=== PATIENT | female | born 1995 | race Caucasian/White ===

== ENCOUNTER 2021-05-10 16:04 | Inpatient (IN) | payer MEDICAID ==
[~2021-05-10] VITALS: Ht 177.8 cm; Wt 67.3 kg
[2021-05-10] VITALS (15 sets, daily range): BP systolic 106–150; BP diastolic 62–92; PULSE 65–96; TEMP 97.8
--- NOTE | 2021-05-10 16:42 | NUR ---
PT TO OB FROM HER HO[facility] PER OFFICE; SHE HAS BEEN TAKING HER BP AT HOME "ALL AFTERNOON" AND SHE HAD 1 ELEVATED 140/90 AND SHE CALLED OFFICE AND THEY TOLE HER TO COME TO HOSPITAL. SHE HAS A SLIGHT JEAN, HAS NOT TAKEN ANY TYLENOL. SHE REPORTS +fm, NO BLEEDING OR UCS TODAY, FOB WAS +COVID MAY 02 AND SHE NEVER WAS TESTED, DENIES SX.
[2021-05-10 17:07] LABS: COLLECTION METHOD CLEAN CATCH
[2021-05-10 17:09] LABS: BASO % 0.3 % (0.0-2.0); EOS # 0.1 K/mm3 (0.0-0.7); EOS % 0.9 % (0.0-4.0); GRAN # 5.4 K/mm3 (1.4-6.5); GRAN % 70.1 % (42.2-75.2); HEMOGLOBIN 10.8 g/dl (12.5-16.0); LYMPH # 1.5 K/mm3 (1.2-3.4); MEAN CELL VOLUME 94 fl (80.0-100.0); MEAN CORPUSCULAR HEMOGLOBIN 34 pg (27-31); MEAN CORPUSCULAR HGB CONC 36 g/dl (33.0-37.0); MEAN PLATELET VOLUME 12.3 fl (7.4-10.4); MONO # 0.7 K/mm3 (0.1-0.6); MONO % 9.2 % (1.7-9.3); PLATELET COUNT 129 K/mm3 (130-400); RED BLOOD COUNT 3.22 M/mm3 (4.10-5.30); REDCELL DISTRIBUTION WIDTH-CV 12.6 % (11.5-14.5)
[2021-05-10 17:10] LABS: HEMATOCRIT 30.3 % (37.0-47.0)
--- NOTE | 2021-05-10 17:18 | NUR ---
LABS DRAWN AND UA COLLECTED, TAKEN TO LAB, PT ASSISTED BACK TO BED
[2021-05-10 17:27] LABS: ALBUMIN 3.2 gm/dL (3.5-5.0); BILIRUBIN,TOTAL 0.2 mg/dL (0.2-1.2); CALCIUM 9.2 mg/dL (8.4-10.2); CREATININE, serum 0.75 mg/dL (0.57-1.11); PH 7 (5-8); POTASSIUM 3.9 mmol/L (3.5-4.5); SQUAMOUS EPITHELIAL None Seen /hpf (0-10); TOTAL PROTEIN 6.6 gm/dL (6.2-8.1); URINE APPEARANCE Clear (CLEAR/HAZY); URINE BACTERIA Rare /hpf (NONE SEEN); URINE BILIRUBIN Negative (NEGATIVE); URINE BLOOD Negative (NEGATIVE); URINE COLOR Yellow (YELLOW); URINE GLUCOSE Negative (NEGATIVE); URINE KETONE Negative (NEGATIVE); URINE LEUKOCYTE ESTERASE Negative (NEGATIVE); URINE NITRATE Negative (NEGATIVE); URINE PROTEIN(semi-quant) 1+ (NEGATIVE); URINE RBC None Seen /hpf (0-2); URINE UROBILINOGEN Negative (NEGATIVE); URINE WBC 0-2 /hpf (0-2)
--- NOTE | 2021-05-10 18:18 | NUR ---
DR RG HAS DECIDED TO KEEP PT AND IOL WITH CYTOTEC I DID GO IN AND DISCUSS POC WITH PT AND HER SO; FOB IS POST 10 DAYS COVID BUT PT NEVER GOT TESTED AND IS ASYMPTOMATIC, PT WOULD BE WITHIN 10 DAYS OF EXPOSURE
[2021-05-10] MEDS ORDERED: PRENATAL TABLET PO (20:28)
[2021-05-10] MEDS ORDERED: VITAMIN D31000 IU PO (20:29)
[2021-05-10] MEDS ORDERED: OMEGA-3 1000 MG1 CAP PO (20:29)
[2021-05-10] MEDS ORDERED: VALTREX1 GM PO (20:29)
[2021-05-11] VITALS (52 sets, daily range): BP systolic 107–150; BP diastolic 57–95; PULSE 63–129; TEMP 97.9–98.7
--- NOTE | 2021-05-11 04:00 | NUR ---
0400- THIS RN TO BEDSIDE TO DISCONNECT MONITORS SO PATIENT CAN GO TO THE BATHROOM AND STRETCH HER LEGS, WASH HER FACE, EAT SOMETHING LIGHT OR WHATEVER SHE WOULD LIKE TO DO TO GET READY FOR THE MORNING BEFORE WE START PITOCIN INDUCTION. PATIENT VERBALIZED UNDERSTANDING ON PLAN OF CARE GOING FORWARD WITH NO FURTHER QUESTIONS. CALL LIGHT WITHIN REACH.
--- NOTE | 2021-05-11 04:35 | NUR ---
0435- PATIENT FINISHED GETTING READY FOR THE MORNING AND EATING HER SNACK. THIS RN TO BEDSIDE TO PUT MONITORS BACK ON. 0440- EFM AND TOCO ON AND TRACING. PLAN OF CARE DISCUSSED. PATIENT VERBALIZED UNDERSTANDING. 0445- SVE /-2. 0450- PITOCIN STARTED PER INDUCTION PROTOCOL AT 2MU/HR. VITALS STABLE. PATIENT DENIES FURTHER NEEDS. CALL LIGHT WITHIN REACH.
--- NOTE | 2021-05-11 06:20 | NUR ---
This RN assumes care of patient. Patient right lateral and sleeping at this time. 0700: Patient more uncomfortable with contractions. Up on birthing ball, difficulty tracing FHR, this RN at bedside adjusting monitor. 0715: Patient standing and leaning on bed during contractions. 0800: Patient more uncomfortable with contractions and continues to stand and lean onto bed. FHR intermittently tracing maternal heart rate due to maternal position. 0820: Patient requesting epidural and Isabel ASSISTANT TO THE DIRECTOR notified. 0850: at bedside assessing patient and FHR strip. Physician attempts SVE and patient not tolerating well. Plan of care disussed. 0902: Patient sitting up for placement of epidural and FHR tracing maternal heart due to maternal position. 0916: Test dose done and patient tolerates well. 0920: Patient given safety precautions and discussing plan of care. Patient repsitioned.
--- NOTE | 2021-05-11 09:30 | NUR ---
0930 Jamal Solis CRNA at bedside dosing patient and patient wedged left.
--- NOTE | 2021-05-11 10:50 | NUR ---
1050: Marroquin catheter placed and patient tolerates well. SVE-10/100/0. 1103: Dr. Patrick called and Vaishali GARCIA takes message at this time. 1110: Pushing instructions discussed and marroquin catheter removed. Patient begins pushing with contractions. 1200: Patient continues to push with contractions. 1219: Dr. Patrick called and updated. see physician notification. 1220: Patient intermittently pushing. 1302: Dr. Patrick at bedside and patient set up for delivery. Patient straight catherized and 50cc obtained. Patient continues to push.
--- NOTE | 2021-05-11 13:10 | NUR ---
1310: Spontaneous vaginal delivery of viable female. Head followed by body. Body cord noted at this time. Terminal meconium. Infant bulb syringed and to patients abdomen and A. Nolan RN assumes care of infant. Cord clamped x2 and FOB cuts cord. Cord blood obtained. Gush of blood noted after delivery of infant. 1315: Spontaneous delivery of placenta and pitocin bolus started per protocol. Dr. Patrick orders for hemabate. Fundus boggy and bleeding moderate. 1322. Hemabate given. see EMAR. Fundal massage done/firm/bleeding WNL. Physician repairs laceration. Pericare done, patient repositioned, fundal massage done/firm/bleeding WNL. Plan of care discussed.
--- NOTE | 2021-05-11 19:19 | NUR ---
LAB CALLED AND STATED THAT WHEN THEY TYPE AND SCREENED MOM'S BLOOD HER D ANTIGEN WAS GRADED AT A 3+ WHICH IS REALLY GOOD. LAB HAS QUESTIONS ABOUT DOING FURTHER TESTING AND STILL TREATING PATIENT A- LIKE SHE HAS BEEN DURING . SPOKE WITH PROVIDER REGARDING THIS, SEE PHYSICIAN NOTIFICATION. WHEN CALLING LAB BACK THEY STATED PER PROTOCOL FOR THEM THEY WERE GOING TO DRAW LABS TOMORROW, BUT WILL HOLD OFF UNTIL SPEAKING WITH PROVIDER. HE ALSO STATED THEY WERE RE TYPING AND SCREENING THE PATIENT SINCE SHE HAS NO HISTORY HERE WITH US AND TO TEST THAT WEAK D ANTIGEN AGAIN TO MAKE SURE.
[2021-05-12 00:15] VITALS: BP 123/69; PULSE 81; TEMP 98.1
[2021-05-12 04:00] VITALS: BP 118/83; PULSE 73; TEMP 97.6
[2021-05-12 07:43] VITALS: BP 138/91; PULSE 91; TEMP 97.5
[2021-05-12] MEDS ORDERED: IBU800 M1 PO (08:35)
--- NOTE | 2021-05-12 09:06 | NUR ---
Initial visit attempt; Nurse with family. Fireworks Maker left a card offering congratulations and God's blessings for the of their daughter and information regarding the availability of spiritual care at our hospital.
== END 2021-05-12 16:40 | disposition home or self-care (01) | DRG 806 ==
LOC: LDRO 16:04 → LDR 16:26 → LDRO 18:09 → LDR 18:10 → OB 05-11 17:57
PROVIDERS: ADMIT Student in an Organized Health Care Education/Training Program
PROC: 10E0XZZ Delivery of Products of Conception, External Approach (ICD-10-PCS; principal; 2021-05-11)
PROC: 0KQM0ZZ Repair Perineum Muscle, Open Approach (ICD-10-PCS; 2021-05-11)
PROC: 3E0P7VZ Introduction of Hormone into Female Reproductive, Via Natural or Artificial Opening (ICD-10-PCS; 2021-05-11)
PROC: 3E033VJ Introduction of Other Hormone into Peripheral Vein, Percutaneous Approach (ICD-10-PCS; 2021-05-11)
DX: O14.04 Mild to moderate pre-eclampsia, complicating childbirth (principal); O98.52 Other viral diseases complicating childbirth; Z37.0 Single live birth; O99.12 Other diseases of the blood and blood-forming organs and certain disorders involving the immune mechanism complicating childbirth; D69.6 Thrombocytopenia, unspecified; B00.9 Herpesviral infection, unspecified; O99.02 Anemia complicating childbirth; D64.9 Anemia, unspecified; O70.1 Second degree perineal laceration during delivery; O75.89 Other specified complications of labor and delivery; Z20.822 Contact with and (suspected) exposure to COVID-19; Z3A.40 40 weeks gestation of pregnancy; Z23 Encounter for immunization; Z14.1 Cystic fibrosis carrier
CPT/HCPCS: J2405; J2590; J2795; J7120